=== PATIENT | male | born 1950 | race Caucasian/White ===

== ENCOUNTER 2017-02-06 11:17 | Emergency (ER) | payer OTHER ==
[2017-02-06 11:20] VITALS: BP 142/71; BMI 31.7
[2017-02-06] MEDS ORDERED: PHENERGAN INJ 25 MG IV ONE (11:45)
[2017-02-06] MEDS ORDERED: NS 1000 ML 1,000 ML IV ONE (11:45)
--- NOTE | 2017-02-06 11:45 | DR.GENAD ---
HPI - PCP Primary Care Physician: MARGARET - HPI Comment HPI Comment: GETTING WORSE. NO FEVER. - Complaint/Symptoms Chief Complaint Doctors Comments: N/V/D TIMES ONE DAY. Chief Complaint:: PT. C/O N/V/D THAT BEGAN SATURDAY MORNING AT 0200 WELL AN INTERMITTENT FEVER. - Nurses notes reviewed Nurses Notes Review: Yes - Source History Provided: Patient - Mode of Arrival Mode of Arrival: Ambulatory - Timing Onset of Chief Complaint: 02/04/17 Came on: Suddenly - Duration Duration: Constant Duration: Days - Severity Severity: Moderate PMH - PMH Past Medical History: Yes Past Medical History: Depression, GERD, Arthritis, Kidney Stones Past Surgical History: Yes Surgical History: Cholecystectomy, Ortho Surgery, Other Past Surgical History Comment: EYE SURGERY - Family History History of Family Medical Conditions: Yes Family Medical History: Diabetes Mellitus, Cancer, [place] - Social History Does patient currently use any type of tobacco product: No Have you used tobacco products in the last 12 months: No Type of Tobacco Use: None Does any household member use tobacco: No Alcohol Use: None Do you use any recreational Drugs:: No Lives With: Spouse Lives Where: Home - infectious screening In the last 2 months have you had wt loss of >10#?: NO Have you had fever, night sweats or hemotysis?: No Have you traveled outside the country in the last 6 months?: No Isolation: Standard ROS - Review of Systems Constitutional: No Symptoms Reported Eyes: No Symptoms Reported ENTM: No Symptoms Reported Respiratoy: No Symptoms Reported Cardiovascular: No Symptoms Reported Gastrointestinal/Abdominal: Abdominal Pain, Diarrhea, Nausea, Vomiting Genitourinary: No Symptoms Reported Neurological: No Symptoms Reported Musculoskeletal: No Symptoms Reported Integumentary: No Symptoms Reported Hematologic/Lymphatic: No Symptoms Reported Endocrine: No Symptoms Reported All Other Systems: Reviewed and Negative PE - Vital Signs Vitals: Temperature 97.7 F Pulse Rate 67 Respiratory Rate 17 Blood Pressure [Left Arm] 165/80 Blood Pressure 142/71 O2 Sat by Pulse Oximetry 97 - General Limitations: No Limitations General Appearance: In No Apparent Distress - Head Head Exam: Normal Inspection - Eyes Eye exam: Normal Appearance - ENT ENT Exam: Normal External Ear Exam External Ear Exam: Normal External Inspection TM/Canal Exam: Bilateral Normal Nose Exam: Normal Nose Exam Mouth Exam: Normal Inspection Throat Exam: Normal Inspection - Neck Neck Exam: Trachea Midline - Chest Chest Inspection: Symmetric Chest Wall Rise - Respiratory Respiratory Exam: Normal Lung Sounds Bilat Respiratory Exam: Bilateral Clear to Auscultation - Cardiovascular Cardiovascular Exam: Regular Rate, Normal Rhythm, Normal Heart Sounds - Abdominal Exam Abdominal Exam: Normal Bowel Sounds, Soft, Tenderness Abdominal Tenderness: Diffuse, Moderate - Back Back Exam: Normal Inspection - Neurologic Neurological Exam: Alert - Skin Skin Exam: Normal Color MDM - Differential Diagnosis Differential Diagnosis: GASTROENTERITIS, ABDOMINAL PAIN, BOWEL OBSTRUCTION Course - Treatment Treatment: SEE ORDERS - Education/Counseling Education/Counseling: Patient, Education Educated On: Diagnosis, Needs for Follow Up ROR - Labs Reviewed Laboratory Results Reviewed?: Yes Result Diagrams: 02/06/17 12:06 02/06/17 12:06 Laboratory: WBC 5.2 X10^3/uL (3.6-10.0) 02/06/17 12:06 RBC 5.82 X10^6/uL (4.7-6.0) 02/06/17 12:06 Hgb 14.7 g/dL (13.5-18.0) 02/06/17 12:06 Hct 45.6 % (42.0-54.0) 02/06/17 12:06 MCV 78.3 fL (80.0-100.0) L 02/06/17 12:06 MCH 25.2 pg (27.0-34.0) L 02/06/17 12:06 MCHC 32.2 g/dL (33.0-35.0) L 02/06/17 12:06 RDW 16.8 % (11.6-16.5) H 02/06/17 12:06 Plt Count 151 X10^3/uL (150.0-450.0) 02/06/17 12:06 Plt Count Comment Adequate (ADEQUATE) 02/06/17 12:06 MPV 10.0 fL (7.4-11.0) 02/06/17 12:06 Neut % 72.0 % (42.0-75.0) 02/06/17 12:06 Lymph % 12.9 % (21.0-51.0) L 02/06/17 12:06 [place] % 13.1 % (0.0-13.0) H 02/06/17 12:06 Eos % 1.6 % (0.9-2.9) 02/06/17 12:06 Baso % 0.4 % (0.2-1.0) 02/06/17 12:06 Neut # 3.8 x10^3/uL (2.2-4.8) 02/06/17 12:06 Lymph # 0.7 X10^3/uL (1.3-2.9) L 02/06/17 12:06 [place] # 0.7 x10^3/uL (0.3-0.8) 02/06/17 12:06 Eos # 0.1 x10^3/uL (0.0-0.2) 02/06/17 12:06 Baso # 0.0 X10^3/uL (0.0-0.1) 02/06/17 12:06 Absolute Nucleated RBC 0.1 /100WBC 02/06/17 12:06 Plt Morphology Comment Normal (NORMAL) 02/06/17 12:06 RBC Morphology Normal (NORMAL) 02/06/17 12:06 Sodium 137 mmol/L (136-145) 02/06/17 12:06 Corrected Sodium TNP 02/06/17 12:06 Potassium 4.2 mmol/L (3.5-5.1) 02/06/17 12:06 Chloride 100 mmol/L (98-107) 02/06/17 12:06 Carbon Dioxide 26.8 mmol/L (21-32) 02/06/17 12:06 BUN 17 mg/dL (7-18) 02/06/17 12:06 Creatinine 1.50 mg/dL (0.70-1.30) H 02/06/17 12:06 Est GFR (MDRD) Af Amer 60 (>60) 02/06/17 12:06 Est GFR (MDRD) Non-Af 49 (>60) L 02/06/17 12:06 Glucose 85 mg/dL (65-99) 02/06/17 12:06 Calcium 8.2 mg/dL (8.5-10.1) L 02/06/17 12:06 Corrected Calcium 8.8 mg/dL (8.5-10.1) 02/06/17 12:06 Total Bilirubin 0.40 mg/dL (0.2-1.0) 02/06/17 12:06 AST 20 Units/L (15-37) 02/06/17 12:06 ALT 37 Units/L (12-78) 02/06/17 12:06 Alkaline Phosphatase 48 Units/L (46-116) 02/06/17 12:06 Total Protein 7.8 g/dL (6.4-8.2) 02/06/17 12:06 Albumin 3.3 g/dL (3.4-5.0) L 02/06/17 12:06 Globulin 4.5 g/dL (2.5-4.5) 02/06/17 12:06 Albumin/Globulin Ratio 0.7 Ratio (1.1-2.1) L 02/06/17 12:06 Amylase 34 Units/L (25-115) 02/06/17 12:06 Lipase 111 Units/L (73-393) 02/06/17 12:06 Specimen Type Clean catch urine 02/06/17 14:51 Urine Color Pale yellow (YELLOW) 02/06/17 14:51 Urine Appearance Clear (CLEAR) 02/06/17 14:51 Urine pH 6.0 (5.0 - 8.0) 02/06/17 14:51 Ur Specific [place] 1.010 (1.000-1.030) 02/06/17 14:51 Urine Protein Negative (NEGATIVE) 02/06/17 14:51 Urine Glucose (UA) Negative (NEGATIVE) 02/06/17 14:51 Urine Ketones 1+ (NEGATIVE) 02/06/17 14:51 Urine Occult Blood Negative (NEGATIVE) 02/06/17 14:51 Urine Nitrite Negative (NEGATIVE) 02/06/17 14:51 Urine Bilirubin Negative (NEGATIVE) 02/06/17 14:51 Urine Urobilinogen Normal (NORMAL) 02/06/17 14:51 Ur Leukocyte Esterase Negative (NEGATIVE) 02/06/17 14:51 Urine RBC None seen /HPF (NEGATIVE) 02/06/17 14:51 Urine WBC 0-1 /HPF (NEGATIVE) 02/06/17 14:51 Ur Squamous Epith Cells Rare /HPF (NEGATIVE) 02/06/17 14:51 Urine Bacteria Trace /HPF (NEGATIVE) 02/06/17 14:51 Ur Culture Indicated? No/not indicated 02/06/17 14:51 - XRAY XRAY Interpreted by: Radiologist XRAY Findings: REPORT DISCUSS WITH PATIENT. - Diagnosis Discharge Problem: Gastroenteritis, Dehydration - Discharge Plan Disposition: HOME, SELF-CARE Condition: Stable - Follow ups/Referrals Follow ups/Referrals: [place] [Primary Care Provider] - 02/07/17 - Instructions Instructions: Viral Gastroenteritis, Adult, [id number], Dehydration, Adult, [id number] Additional Instructions: RETURN TO ED IF WORSE.
[2017-02-06] MEDS ORDERED: NS 1000 ML 1,000 ML ONE (12:11)
[2017-02-06] MEDS ORDERED: PHENERGAN INJ 25 MG ONE (12:11)
[2017-02-06 12:16] LABS: BASOPHILS % (AUTO) 0.4 % (0.2-1.0); EOSINOPHILS # (AUTO) 0.1 x10^3/uL (0.0-0.2); EOSINOPHILS % (AUTO) 1.6 % (0.9-2.9); HEMATOCRIT 45.6 % (42.0-54.0); HEMOGLOBIN 14.7 g/dL (13.5-18.0); LYMPHOCYTES # (AUTO) 0.7 X10^3/uL (1.3-2.9); LYMPHOCYTES % (AUTO) 12.9 % (21.0-51.0); MEAN CORPUSCULAR HEMOGLOBIN 25.2 pg (27.0-34.0); MEAN CORPUSCULAR HGB CONC 32.2 g/dL (33.0-35.0); MEAN CORPUSCULAR VOLUME 78.3 fL (80.0-100.0); MONOCYTES # (AUTO) 0.7 x10^3/uL (0.3-0.8); MONOCYTES % (AUTO) 13.1 % (0.0-13.0); NEUTROPHILS # (AUTO) 3.8 x10^3/uL (2.2-4.8); PLATELET COUNT 151 X10^3/uL (150.0-450.0); RED BLOOD COUNT 5.82 X10^6/uL (4.7-6.0); RED CELL DISTRIBUTION WIDTH 16.8 % (11.6-16.5); WHITE BLOOD COUNT 5.2 X10^3/uL (3.6-10.0)
[2017-02-06 12:22] LABS: PLATELET MORPHOLOGY COMMENT NORMAL (NORMAL)
[2017-02-06 12:25] LABS: ALANINE AMINOTRANSFERASE 37 Units/L (12-78); ALBUMIN 3.3 g/dL (3.4-5.0); ALKALINE PHOSPHATASE 48 Units/L (46-116); AMYLASE 34 Units/L (25-115); ASPARTATE AMINO TRANSFERASE 20 Units/L (15-37); BLOOD UREA NITROGEN 17 mg/dL (7-18); CALCIUM 8.2 mg/dL (8.5-10.1); CARBON DIOXIDE 26.8 mmol/L (21-32); CHLORIDE 100 mmol/L (98-107); COR CA(FOR HYPOALB) 8.8 mg/dL (8.5-10.1); GLUCOSE 85 mg/dL (65-99); LIPASE 111 Units/L (73-393); SODIUM 137 mmol/L (136-145); TOTAL PROTEIN 7.8 g/dL (6.4-8.2); eGFR BLACK RACES 60 (>60); eGFR NON BLACK RACES 49 (>60)
--- NOTE | 2017-02-06 13:50 | CT ---
HISTORY: Abdominal pain with nausea and vomiting and diarrhea Study: CT abdomen and pelvis without contrast Comparison: November 27, 1999 50 Technique: Multiple axial images of the abdomen and pelvis were obtained from the lung bases to the pubic symph ysis without the administration of IV contrast. Sagittal and coronal reformations were provided. Findings: The visualized portions of the lung bases are unremarkable. There is an approximately 1.5 centimete r low-attenuation mass in the dome of the spleen unchanged. The liver and pancreas and adrenal gland s and kidneys are unremarkable. There is no hydronephrosis or renal calculus demonstrated on this ex am.. The gallbladder is surgically absent.. No significant mesenteric lymphadenopathy or stranding can be observed. No free fluid or free air is seen within the abdomen. The appendix is normal peer No bowel wall thickening or bowel dilatation is present. The colon is unremarkable. Specifically, there is no diverticulosis noted within the sigmoid colon. The urinary bladder is grossly unremarka ble. There is artifact from a right hip prosthesis. IMPRESSION: 1. Negative CT of the abdomen and pelvis. Reported By:
[2017-02-06 14:58] LABS: BILIRUBIN,URINE NEGATIVE (NEGATIVE); BLOOD/HEMOGLOBIN,URINE NEGATIVE (NEGATIVE); GLUCOSE, URINE NEGATIVE (NEGATIVE); KETONES,URINE 1+ (NEGATIVE); LEUKOCYTE ESTERASE ,URINE NEGATIVE (NEGATIVE); NITRITES,URINE NEGATIVE (NEGATIVE); PROTEIN,URINE NEGATIVE (NEGATIVE); UROBILINOGEN,URINE NORMAL (NORMAL)
[2017-02-06 15:22] LABS: APPEARANCE,URINE CLEAR (CLEAR); BACTERIA,URINE TRACE /HPF (NEGATIVE); COLOR,URINE PALE YELLOW (YELLOW); RBC,URINE NONE SEEN /HPF (NEGATIVE); SQUAMOUS EPITHELIAL CELL,UR RARE /HPF (NEGATIVE)
== END 2017-02-06 15:32 | disposition home or self-care (01) ==
LOC: ER 11:17
DX: K52.89 Other specified noninfective gastroenteritis and colitis (principal); E86.0 Dehydration
CPT/HCPCS: 36415; 74176; 80053; 81001; 82150; 83690; 85025; 96365; 96374; 99283; A4222; J2550

== ENCOUNTER → 2017-02-07 | Outpatient (CLI) | payer OTHER ==
[2017-02-06 11:20] VITALS: BP 142/71
[2017-02-07 14:20] LABS: CRYPTOSPORIDIUM PARVUM ANTIGEN NEGATIVE (NEGATIVE); GIARDIA LAMBLIA ANTIGEN NEGATIVE (NEGATIVE)
== END ==
LOC: LAB 13:03
PROVIDERS: ATTEND Internal Medicine
DX: R19.7 Diarrhea, unspecified (principal); B96.89 Other specified bacterial agents as the cause of diseases classified elsewhere
CPT/HCPCS: 82270; 87045; 87205; 87328; 87329; 87336; 87427; 87493; 87899

== ENCOUNTER → 2017-04-25 | Outpatient (CLI) | payer OTHER ==
--- NOTE | 2017-04-25 09:42 | MRI ---
STUDY: MRI OF THE BRAIN WITHOUT GADOLINIUM HISTORY: Mild cognitive impairment. Headaches. Technique: Multiplanar multi-sequence MRI of the brain was obtained utilizing standard departmental protocol. Sagittal and axial T1, axial T2, FLAIR, diffusion (DWI/ADC) images through the brain were performed. Comparison: Head CT dated November 08, 2016. Findings: The sulci, cisterns and ventricles are prominent consistent with diffuse volume loss. There are conf luent and scattered foci of T2 prolongation in the periventricular and subcortical white matter of b oth hemispheres. This is a nonspecific finding which likely represents microangiopathic change in a patient of this age. 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 There is no evidence of acute territorial infarction, hemorrhage, mass, mass effect, or midline shift. There are no abnormal intra-axial or extra-axial fluid collections. The major intracranial vascular flow voids appear intact. The left vertebral artery appears dominant . There is bilateral aphakia. IMPRESSION: 1. No evidence of acute intracranial abnormality. 2. 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 3. Nonspecific white matter change and volume loss. Reported By:
== END | disposition home or self-care (01) | DRG 57 ==
LOC: RAD 08:24
PROVIDERS: ATTEND Internal Medicine
DX: G31.84 Mild cognitive impairment of uncertain or unknown etiology (principal); G93.89 Other specified disorders of brain
CPT/HCPCS: 70551